=== PATIENT | female | born 1980 | race Caucasian/White ===

== ENCOUNTER 2017-10-07 05:27 | Observation (INO) | payer BC ==
[2017-10-07] MEDS ORDERED: BUPIVACAINE 0.25%/EPI (MDV) 50 ML VIAL INJ (07:00)
[2017-10-07] MEDS ORDERED: MIDAZOLAM 1 MG/ML 2 ML INJ (07:23)
[2017-10-07] MEDS ORDERED: HYDROmorphONE 2 MG/ML SYG (07:43)
[2017-10-07] MEDS: BUPIVACAINE 0.25%/EPI (SDV) 30 ML INJ INJ (07:58)
[2017-10-07] MEDS: POLYMYXIN/BACITRACIN 1L IRRIG (08:44)
[2017-10-07] MEDS: BETAMET NA PHOS/AC(6 MG/ML) 5ML INJ (08:45)
[2017-10-07] MEDS: THROMBIN 5000 UNIT VIAL (08:45)
[2017-10-07] MEDS ORDERED: DEXAMETHASONE 4 MG/ML 1 ML INJ (09:02)
[2017-10-07] MEDS: GELATIN SIZE 100 SPONGE (10:00)
[2017-10-07] MEDS ORDERED: ONDANSETRON 4 MG INJ (10:24)
[2017-10-07] MEDS ORDERED: SUGAMMADEX SODIUM 200 MG/2 ML VIAL IV (10:25)
[2017-10-07] MEDS ORDERED: CLINDAMYCIN 900 MG/D5W (PMX) 50 ML IVPB (10:29)
[2017-10-07] MEDS ORDERED: PROPOFOL 20 ML (10:29)
[2017-10-07] MEDS ORDERED: ROCURONIUM 50 MG INJ (10:29)
[2017-10-07] MEDS ORDERED: HYDROmorphONE 0.5 MG/0.5 ML SYG IV (11:00)
[2017-10-07] MEDS ORDERED: HYDROmorphONE (0.2 MG/ML) 10ML SYG IV ×3 (11:00)
[2017-10-07] MEDS ORDERED: PROCHLORPERAZINE 10 MG TAB PO (11:00)
[2017-10-07] MEDS ORDERED: DIPHENHYDRAMINE 50 MG INJ IV (11:00)
[2017-10-07] MEDS ORDERED: EPHEDrine SULFATE 50 MG/5 ML SYG IV (11:00)
[2017-10-07] MEDS ORDERED: METOCLOPRAMIDE 10 MG INJ IV (11:00)
[2017-10-07] MEDS ORDERED: hydrALAzine 20 MG INJ IV (11:00)
[2017-10-07] MEDS ORDERED: MEPERIDINE 25 MG INJ IV (11:00)
[2017-10-07] MEDS ORDERED: ONDANSETRON 4 MG INJ IV (11:00)
[2017-10-07] MEDS ORDERED: NALOXONE (0.4 MG/ML) INJ IV (11:00)
[2017-10-07] MEDS ORDERED: ALBUTEROL 0.083% (NEB) 2.5 MG/3 ML AMP HHN (11:00)
[2017-10-07] MEDS ORDERED: FENTAnyl 50 MCG/ML VIAL IV ×3 (11:00)
[2017-10-07] MEDS ORDERED: MIDAZOLAM 1 MG/ML 2 ML INJ IV (11:00)
[2017-10-07] MEDS ORDERED: ACETAMINOPHEN 325 MG TAB PO (11:00)
[2017-10-07] MEDS ORDERED: KETOROLAC 30 MG INJ IV (11:00)
[2017-10-07] MEDS ORDERED: OXYCODONE/ACETAMINOPHEN (5/325) TAB PO ×2 (11:00)
[2017-10-07] MEDS ORDERED: LABETALOL HCL 20MG INJ IV (11:00)
[2017-10-07] MEDS ORDERED: NACL 0.9% 3 ML SYG IV (11:00)
[2017-10-07] MEDS: VANCOMYCIN 1 GM (PMX) 250 ML IVPB ×2 (11:37→23:32)
[2017-10-07] MEDS: GABAPENTIN 300 MG CAP PO ×2 (12:46→20:54)
[2017-10-07] MEDS: HYDROCODONE/APAP (5/325) TAB PO ×3 (15:15→22:05)
[2017-10-07] MEDS: D5W-0.45 NACL + KCL 20 MEQ 1,000 ML IV ×2 (17:29→22:00)
[2017-10-08] MEDS: HYDROCODONE/APAP (5/325) TAB PO ×3 (03:02→13:27)
[2017-10-08] MEDS: D5W-0.45 NACL + KCL 20 MEQ 1,000 ML IV (04:34)
[2017-10-08] MEDS: GABAPENTIN 300 MG CAP PO ×2 (08:16→12:59)
== END 2017-10-08 13:59 | disposition home or self-care (01) ==
LOC: SDS 05:27 → REC 10:40 → MS1 11:55
DX: M51.17 Intervertebral disc disorders with radiculopathy, lumbosacral region (principal); Z88.0 Allergy status to penicillin
CPT/HCPCS: 63030; 72100; 97116; 97163; 99217